=== PATIENT | female | born 1955 | race Caucasian/White ===

== ENCOUNTER 2018-03-10 12:08 | Day surgery (SDC) | payer OTHER ==
[2018-03-10] MEDS ORDERED: LIDOCAINE 2% (SDV) 5 ML INJ (13:52)
[2018-03-10] MEDS ORDERED: PROPOFOL 60 ML (13:52)
== END 2018-03-10 14:44 | disposition home or self-care (01) ==
LOC: GIL 12:08
DX: Z12.11 Encounter for screening for malignant neoplasm of colon (principal); K64.8 Other hemorrhoids; K57.90 Diverticulosis of intestine, part unspecified, without perforation or abscess without bleeding; E11.9 Type 2 diabetes mellitus without complications; I10 Essential (primary) hypertension; E66.9 Obesity, unspecified; Z68.30 Body mass index [BMI] 30.0-30.9, adult
CPT/HCPCS: 45378; 82962